=== PATIENT | female | born 1990 | race Caucasian/White ===

== ENCOUNTER 2024-02-11 21:33 | Emergency (ER) | payer SELFPAY ==
[~2024-02-11] VITALS: Ht 167.6 cm; Wt 74.0 kg
[2024-02-11 22:10] VITALS: TEMP 98.4; O2SAT 98
[2024-02-11 22:57] LABS: CLARITY URINE TURBID (CLEAR); COLOR URINE DARK YELLOW (YELLOW); GLUCOSE URINE NEGATIVE (NEGATIVE); KETONES URINE TRACE (NEGATIVE); LEUKOCYTE ESTERASE URINE 3+ (NEGATIVE); NITRITE URINE NEGATIVE (NEGATIVE); OCCULT BLOOD URINE 2+ (NEGATIVE); PH URINE 5.5 (4.5-8.0); PROTEIN URINE 3+ (NEGATIVE); SPECIFIC GRAVITY URINE 1.019 (1.005-1.030)
[2024-02-11 23:12] LABS: BACTERIA URINE 4+; SQUAMOUS EPITHELIAL CELL URINE 1+ /lpf (RARE/1+)
[2024-02-11 23:13] LABS: WBC URINE TNTC /hpf (0-2)
[2024-02-12] MEDS: CEFTRIAXONE SODIUM 1G VIAL IM ONE (00:04)
[2024-02-12] MEDS: KETOROLAC 15MG/ML VIAL IM ONE (00:04)
[2024-02-12] MEDS: ONDANSETRON HCL 4MG TABLET PO ONE (00:04)
[2024-02-12] MEDS ORDERED: CEPH500C2 MT (00:10)
[2024-02-12 00:36] VITALS: BP 125/66; PULSE 86; RESP 17; O2SAT 98
== END 2024-02-12 00:38 | disposition home or self-care (01) ==
LOC: ER 21:33
DX: N12 Tubulo-interstitial nephritis, not specified as acute or chronic (principal); R50.9 Fever, unspecified
CPT/HCPCS: 99284; 81003; 87086; 87186; 87077; 96372; Q0162; J0696; J1885